=== PATIENT | female | born 1950 | race Caucasian/White ===

== ENCOUNTER 2024-08-03 11:06 | Day surgery (SDC) | payer MEDICARE, SELFPAY ==
--- NOTE | 2024-08-03 | LES_PTH ---
PATIENT: JESICA MCCAIN [place] [facility] [place][id number] AGE/SX: 73/F ROOM: RE08/03/[address]: Dr. Marilynn Martin MD : 1950 BED: DIS: 08/03/2024 SPEC #: [id number] RECD: 08/03/24 13:06 STATUS: PEPITO JOSE E #: [id number] TATIANA: 08/03/24 00:[address]: Marilynn Martin DEPT: SURGICAL PATHOLOGY RECD BY: Neel Lyles Tissues: Skin of face, NOS Procedures: Frozen Section (charge) Surgery Specimen Level IV HEADER OPERATION: Excision basal cell carcinoma forehead with frozen section PRE-OP DIAGNOSIS: Basal cell carcinoma of skin of face TISSUE SUBMITTED: Basal cell carcinoma right brow lesion FROZEN SECTION DIAGNOSIS Right brow lesion: Margins are free. 08/03/2024 MICROSCOPIC DIAGNOSIS Right brow lesion, excisional biopsy: Negative for residual carcinoma. Changes consistent with previous biopsy site. Solar elastosis. See comment. 08/06/2024 COMMENT Please make reference to previous specimen from [facility] dated 06/26/2024, [id number] right eyebrow area with diagnosis of basal cell carcinoma, ulcerated, nodular and infiltrating. MICROSCOPIC DESCRIPTION Slides are reviewed. GROSS DESCRIPTION Received fresh for frozen section diagnosis labeled with the patient's name is a specimen designated Right brow lesion. The specimen consists of an ovoid piece of velasquez-brown skin measuring 0.9 x 0.5 x 0.2cm. The specimen is oriented on the gauze piece. The specimen is inked as follows: 12o'clock- black, 6o'clock-blue, 3o'clock-yellow, 9o'clock- green. The specimen is serially sectioned and submitted entirely for frozen section diagnosis in two cassettes. Cassette 1 contains the 3 and o'clock margins. SJ.mr 08/03/2024 TC:5 CPT:91260,31766,43691
[2024-08-03 11:26] VITALS: BP 149/70; PULSE 58; RESP 16; TEMP 35.9; O2SAT 100; BMI 11.9
--- NOTE | 2024-08-03 11:27 | PCM.HP.BLA ---
History and Physical Date of Admission: 08/03/24 Pt presents for excision of a bx proven BCC of her forhead with FS. The pt is examined and there are no changes to the H&P of 07/20/24. Informed consent obtained. The pt is marked in the pre-op area. Assessment & Plan Assessment/Plan (1) Basal cell carcinoma of skin of face: PLAN: Plan For excision BCC forehead with FS
[2024-08-03 11:45] VITALS: BP 136/60; BP 137/96; BP 151/61; O2SAT 96; O2SAT 97; O2SAT 98
[2024-08-03] MEDS: Lidocaine 1% /Epi 1:100 9 ML, Sodium Bicarbonate 1 MEQ OPERA.SITE (12:01)
--- NOTE | 2024-08-03 12:46 | EX.PCM.DISCH ---
Discharge Instructions Dressing / Incision Additional Dressing/Incision Instructions:: Keep your back elevated (recliner position) for the next 3-4 nights to prevent bruising and swelling. Take the oral antibiotic (Keflex) 2 times a day until finished. Keep the tape dry. May leave the tape in place until seen in the office. Follow Up Care Please Follow Up With: Marilynn Martin MD When: 1 to 2 weeks Test Results: Test results from this visit will be discussed in further detail at your follow-up appointment, if applicable. Discharge Plan Admission Attending Provider: Marilynn Martin Primary Care Provider: KEVIN PEREZ Instructions Print Language: [place] Discharge Orders/Prescriptions Prescriptions: New cephalexin 500 mg capsule 500 mg PO BID 5 Days Qty: 10 0RF No Action glimepiride 1 mg tablet PO DAILY metformin 500 mg tablet extended release 24 hr 1,000 mg PO BID atenolol 50 mg tablet 50 mg PO QDAY hydrochlorothiazide 12.5 mg capsule 12.5 mg PO QDAY (DME) FreeStyle Gauri 3 Plus Sensor Device See Rx Instructions .ROUTE Q2W Qty: 1 Rx Instructions: As directed levothyroxine 112 mcg tablet 112 mcg PO QDAY simvastatin 10 mg tablet 10 mg PO QDAY metformin 500 mg/5 mL solution 500 mg PO BID Jardiance 25 mg tablet 25 mg PO QAM mecobalamin (vitamin B12) [B12 Active] 1,000 mcg tablet,chewable 1,000 mcg PO QDAY ascorbate calcium (vitamin C) 500 mg tablet 500 mg PO QDAY Adult 50 Plus Probiotic 4 billion cell capsule 4,000 mmu cells PO QDAY Rx Instructions: administer with a meal acyclovir 400 mg tablet 400 mg PO QDAY Referrals / Follow Up: KEVIN PEREZ [Other] Disposition Disposition (needs filled in before D/C Order can be placed): Home, Self Care
--- NOTE | 2024-08-03 12:47 | PCM.OPRPT ---
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 Type of Anesthesia: Local RN Documented Start/Stop Times: Operation Date: 08/03/24 11:40 Case Time Into Pre-Op 08/03/24 11:13 Out of Pre-Op 08/03/24 11:36 Into Room 08/03/24 11:40 Procedure Start 08/03/24 11:59 Procedure End 08/03/24 12:38 Anesthesia End 08/03/24 12:41 Out of Room 08/03/24 12:41 Procedure Start Time: 11:59 Procedure Stop Time: 12:38 Select all DRAINS/GRAFTS/IMPLANTS that apply: None Estimated Blood Loss: Minimal Specimen collected: Yes Description of specimen(s) removed: BCC right brow Description of surgery: The patient presents with a previous biopsy of a BCC of the right brow. She presents for reexcision with frozen section evaluation of margins. She is marked in the preop holding area prior to surgery. Informed consent was obtained. The patient is brought to the operating room and placed on the operating room table in the supine position. The face is prepped and draped in the usual sterile fashion. We initially began with anesthetizing the site with 1% Xylocaine with epinephrine buffered with sodium bicarb. Following this, the site is excised and passed off the operative field maintaining orientation for pathology. Hemostasis is controlled with cautery. Pathology returns the margins to be free of neoplasm and therefore we closed wound. 5-0 Monocryl sutures used to approximate subcutaneous tissue and dermis. A subcuticular suture of Monocryl was used to approximate skin. Further reinforcement and refinement of the closure is done with a running plain gut suture. Dermabond and Steri-Strips were placed on the site. She tolerated the procedure well was taken to the recovery area in an awake and stable condition. Needle and sponge counts are correct. Surgical Findings: As above Complications Complications: No Admit VTE Documentation VTE Mechan Device Prophylaxis: None Reason prophylaxis not ordered: Treatment Not Indicated
== END 2024-08-03 13:15 | disposition home or self-care (01) ==
LOC: SDC 11:08 → AC 11:10
PROVIDERS: Referring Provider Plastic Surgery; Visit Provider Plastic Surgery
PROC: (CPT 11642; principal; 2024-08-03 11:30)
DX: C44.310 Basal cell carcinoma of skin of unspecified parts of face (principal); L57.8 Other skin changes due to chronic exposure to nonionizing radiation
CPT/HCPCS: 11642; 12051; 88305; 88331